=== PATIENT | male | born 1975 | race Caucasian/White ===

== ENCOUNTER 2017-07-27 11:43 | Emergency (ER) | payer MEDICAID, OTHER ==
[~2017-07-27] VITALS: Ht 182.9 cm; Wt 76.4 kg
[2017-07-27 11:46] VITALS: BP 120/77; PULSE 68; RESP 16; O2SAT 99
--- NOTE | 2017-07-27 12:54 | ED.REPORT ---
HPI-General Illness Date of Service Jul 27, 2017 ED Provider: Benji Kramer PA-C Tyrel is a 42-year-old male with a history of homelessness who presents emergency Department with a chief complaint of body pain. Patient reports that 5 days ago he was arrested and suffered injuries in the course of that arrest. Complains of rib pain, anterior chest pain, left cheek pain, nose pain. Denies neck pain, vision changes, nasal congestion, cough, wheeze, shortness of breath , palpitations. Nursing Notes Stated Complaint: BODY PAIN Chief Complaint: General Complaint Nursing Notes Reviewed: Yes Allergies: Coded Allergies: No Known Allergies (Unverified , 01/07/16) Scheduled PRN Acetaminophen (Acetaminophen) 500 Mg Tablet 500 MG PO Q6H PRN PRN For Pain Hydrocodone-Acetaminophen 5-325 mg (Hydrocodone-Acetaminophen 5-325 mg) 1 Each Tablet 1-2 TABLET PO QID PRN PRN For Pain Ibuprofen (Ibuprofen) 800 Mg Tablet 800 MG PO TID PRN PRN For Pain General Time Seen by MD: 11:46 Chief Complaint Other (body pain) Past Medical History Past Medical History Denies Review of Systems Negative unless stated otherwise in history of present illness Physical Exam General: Well appearing, well developed, well nourished, no acute distress. Head: Atraumatic, normocephalic. Eyes: Bruising and medial left eye. EOMI. PERRL. Anterior chambers clear. No scleral icterus or injection. No discharge. Vision grossly intact. Ears: Hearing grossly intact. Nose: Moderate swelling, nares patent without discharge. Tender over nasal bones without crepitus . Mild left maxillary sinus tenderness. Negative frontal sinus tenderness, right maxillary sinus tenderness. Negative zygomatic tenderness. Negative tongue blade bite test. Mouth/pharynx: Sparse, atraumatic dentition. mucus membranes moist. Tonsils 2+ and symmetrical, uvula midline. Pharynx noninjected, no cobblestoning or discharge. Voice clear. Neck: No tenderness or lymphadenopathy. Trachea midline. Respiratory: Regular rate and rhythm. Breath sounds present, clear to auscultation and equal bilaterally. No respiratory distress. No increased work of breathing, speaks in complete sentences. Cardiovascular: Regular rate and rhythm, without murmur, gallop or rub. No pedal edema. Gastrointestinal: Abdomen flat and non-tender without guarding or rebound. Bowel sounds normoactive. Chest: Normal to inspection, tender over lateral ribs. Mild crepitus noted with deep inspiration. Skin: Warm and dry. Neurological: Grossly nonfocal. Psychological: Alert and oriented. Speech appropriate, linear and logical. Behavior appropriate. Vital Signs Vital Signs Date Time Temp Pulse Resp B/P Pulse Ox O2 Delivery O2 Flow Rate FiO2 07/27/17 14:41 60 14 118/83 99 07/27/17 11:46 37.1 68 16 120/77 99 Room Air Normal Interpretation & Diagnostics X-Ray Chest Interpretation Chest Xray Interpretation: Probable acute right fifth rib fracture, no pneumothorax, pleural effusion, lung contusion. Interpretation / Wet Read by: Interpret - Radiologist Re-Eval/Medical Decision Med Decision/Clinical Course Otherwise healthy 42-year-old male with a history of homelessness presents to the emergency department the chief complaint body pain. Reports Being arrested 5 days ago and injured in the course of that arrest. Complains of rib pain, left cheek pain, nose pain, anterior chest pain. Denies difficulty breathing, neck pain. Denies drug and alcohol use. Physical examination reveals tenderness and crepitus in the right lateral ribs. Lung sounds are clear and equal bilaterally. Moderate swelling over the bridge of the nose with tenderness but no crepitus. Nares are patent without discharge. There is bruising around the left eye and some mild left maxillary tenderness. EOMI, PERRL, anterior chambers clear, vision grossly intact. Otherwise benign exam with normal vitals. X-ray of the chest reveals probably acute fifth rib fracture on the right. No indication of pneumothorax, hemothorax. At time I don't see indication for imaging of the face. The patient is concerned about possible broken nose. I provided ENT referral if he still feels concerned about this after swelling is reduced. Advise regarding [id number] analgesia and provide prescriptions. In light of the objective findings I feel a small amount of [place] to supplement is reasonable. I questioned the patient closely about his drug and alcohol use and provided precautions. Advised regarding primary care follow-up, provided emergency return precautions. Patient verbalized understanding of, and consent to, the plan. Discharge & Departure Primary Impression: Rib fracture Encounter type: initial encounter Rib fracture type: single rib Fracture type: closed Laterality: right Qualified Code: S22.31XA - Fracture of one rib, right side, initial encounter for closed fracture Disposition: Home Discharge Condition All VS Reviewed: Yes Condition: Stable Patient Instructions: Rib Fracture (ED) Additional Instructions: Evaluation in emergency department includes interview, physical examination x- rays which reveal a fracture in your right fifth rib. The pain is best treated with 800 mg of ibuprofen (Advil, Motrin) every 8 hours , or 1000 mg of acetaminophen (Tylenol) every 6 hours. These drugs can be taken at the same time for more severe pain. I have written a prescription for a small amount of hydrocodone/acetaminophen 5/325 mg which can be SUBSTITUTED for the Tylenol to treat more severe pain. Do not take them together, and do not drink alcohol or operate a vehicle within 4 hours of taking this medication. Do not take your naproxen with the ibuprofen. Be sure to take a few very deep breaths every hour or so to prevent development of any pneumonia. At this time I don't see an indication to get a CT scan of your face. If, after the swelling goes down in your nose you have further concerns about a fracture, I have provided with a referral to an ear nose and throat doctor. Follow-up with your primary care provider in about a week to be sure this is progressing expected. Return to the emergency Department for any new or worsening symptoms including increasing pain, shortness of breath, cough. Referrals: Vernell Bradford (PCP) EDSupervising Provider for APC: Jose A Gupta MD copies to: Vernell Bradford Seth PA-C Jul 27, 2017 12:54
[2017-07-27] MEDS ORDERED: HYDR-4003 PO (12:56)
[2017-07-27] MEDS ORDERED: IBUP800T28 PO (12:59)
[2017-07-27] MEDS ORDERED: ACET-171 PO (12:59)
[2017-07-27] MEDS ORDERED: HYDROcodone-APAP 5-325 mg Tablet PO ONE (13:00)
[2017-07-27 14:41] VITALS: BP 118/83; PULSE 60; RESP 14; O2SAT 99
== END 2017-07-27 14:01 | disposition home or self-care (01) ==
LOC: EDBD 11:43 → SED 11:43 → EDUNIT# 11:43 → SED 14:01
DX: S22.31XA Fracture of one rib, right side, initial encounter for closed fracture (principal); Y35.893A Legal intervention involving other specified means, suspect injured, initial encounter; Y93.89 Activity, other specified; Y92.89 Other specified places as the place of occurrence of the external cause; Y99.8 Other external cause status; J34.89 Other specified disorders of nose and nasal sinuses; R51 Headache; Z59.0 Homelessness